=== PATIENT | male | born 2000 | race Caucasian/White ===

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

== ENCOUNTER 2021-02-08 12:28 | Emergency (ER) | payer OTHER, SELFPAY ==
[2021-02-08 12:58] VITALS: BP 136/91; PULSE 103; RESP 18; TEMP 37; O2SAT 99; BMI 20.7
--- NOTE | 2021-02-08 14:12 | HMH.EDUTC ---
[facility] [place] Impression: Laceration of left hand Qualifiers: Encounter type: initial encounter Foreign body presence: without foreign body Qualified Code(s): S61.412A - Laceration without foreign body of left hand, initial encounter Disposition: Home, Self-Care Condition on Discharge: Good Instructions: How to Care for a Laceration After Repair, DI for Laceration Repair -- Simple Additional Instructions: Keep the wound clean and dry. Keep a dressing on it if you are going to be getting it dirty. Watch the for signs of infection, such as redness, swelling, drainage, fever. etc. take tylenol or ibuprofen for pain. Follow up with your regular doctor for any issues. Return in 10 days to have the sutures removed. GO TO THE ER FOR ANY WORSENING SYMPTOMS OR CONCERNS. Prescriptions: cephALEXin [cephALEXin 500mg capsule] 500 mg PO Q6H 10 Days #40 cap Transmission Status: Received by [id number] Referrals: Jadon Warner MD [Primary Care Provider] - Forms: Work/School Release Time of Disposition: 14:14 Medical Decision Making - Medical Records Medical records reviewed: No: I reviewed the patient's medical records. - Gonzalo Inquiry Pt receiving controlled substance: No Vital Signs: 02/08/21 12:58 02/08/21 14:16 Temperature 98.6 F 98.6 F Temperature Source Oral Pulse Rate 103 H Pulse Rate [Left] 103 H Respiratory Rate 18 18 Blood Pressure 136/91 H Blood Pressure [Right Arm] 136/91 H Blood Pressure Mean [Right Arm] 106 Blood Pressure Source [Right Arm] Automatic Cuff Blood Pressure Position [Right Arm] Sitting 02 Sat by Pulse Oximetry 99 Orders (Tests/Meds): ED MEDICATIONS Discontinued Medications Generic Name Dose Route Start Last Admin Trade Name Freq PRN Reason Stop Dose Admin Lidocaine HCl 5 ml 02/08/21 15:16 02/08/21 15:17 Lidocaine 1% 5ml Pf Vial SQ 02/08/21 15:17 5 ml ONCE ONE Administration Neomycin/Polymyxin/Bacitracin 2 each 02/08/21 14:22 02/08/21 14:22 Neosporin Ointment 0.9gm Udp TP 02/08/21 14:23 2 each ONCE ONE [place] [facility] [place] - General Stated complaint: [id number] cut to left hand Time Seen by Provider: 02/08/21 13:05 Mode of Arrival: Ambulatory Source of Information: Patient Limitations: No Limitations Description of Symptoms (Recalled from Triage Doc. by RN): pt has a lac on his L palm on a green meat grader. approximated edges. 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 He states that his tetanus immunization is up to date. - Related Data Previous Rx's Medication Instructions Recorded cephALEXin [cephALEXin 500mg 500 mg PO Q6H 10 Days #40 cap 02/08/21 capsule] Allergies Allergy/AdvReac Type Severity Reaction Status Date / Time No Known Allergies Allergy Verified 02/08/21 13:04 - Worker's Comp Is this a Worker's Comp case?: No [facility] History - Hepatitis A Screen Drug use history?: No High risk sexual behaviors?: No History of sexually transmitted infection?: No Currently employed?: No Childcare worker?: No Do you have indoor plumbing?: Yes Do you have electricity?: Yes Attestation statement:: This patient has been screened for Hepatitis A risk factors. I have reviewed the patient's past medical history: Yes ROS Obtained: Yes All systems reviewed & no additional complaints - Musculoskeletal Musculoskeletal: Reports as per HPI - Integumentary/Breasts Skin/Breast: Reports as per HPI - Neurologic Neurologic: Denies tingling/numbness/burning sensations Physical Exam - General General appearance: alert, in no apparent distress - Head Head
[2021-02-08 14:16] VITALS: BP 136/91; PULSE 103; RESP 18; TEMP 37; O2SAT 99
== END 2021-02-08 14:18 | disposition home or self-care (01) ==
PROVIDERS: Emergency Provider Nurse Practitioner Family; PCP Internal Medicine Adolescent Medicine
DX: S61.412A Laceration without foreign body of left hand, initial encounter (principal); W29.0XXA Contact with powered kitchen appliance, initial encounter; Y92.69 Other specified industrial and construction area as the place of occurrence of the external cause; Y99.0 Civilian activity done for income or pay
CPT/HCPCS: 12001; 96372; 99202; G0463

== ENCOUNTER → 2021-03-01 07:54 | Outpatient (CLI) | payer BC, SELFPAY ==
[2021-03-04 07:32] LABS: QuantiFERON-TB Gold Plus Negative (Negative)
== END ==
PROVIDERS: Visit Provider Internal Medicine Adolescent Medicine
DX: Z11.1 Encounter for screening for respiratory tuberculosis (principal)
CPT/HCPCS: 36415; 86480

== ENCOUNTER → 2021-07-01 09:36 | Outpatient (CLI) | payer BC, SELFPAY ==
[2021-07-02 12:11] LABS: Varicella-Zoster Ab, IgM <0.91 index (0.00-0.90)
[2021-07-02 15:21] LABS: Varicella Zoster IgG 2472 index (Immune >165)
== END ==
PROVIDERS: Visit Provider Internal Medicine Adolescent Medicine
DX: Z00.00 Encounter for general adult medical examination without abnormal findings (principal)
CPT/HCPCS: 36415; 86787

== ENCOUNTER 2022-04-13 12:07 | Outpatient (CLI) | payer BC, SELFPAY ==
[2022-04-13 12:21] VITALS: BMI 22.9
== END 2022-04-13 12:39 | disposition home or self-care (01) ==
PROVIDERS: PCP Internal Medicine Adolescent Medicine; Visit Provider Internal Medicine Adolescent Medicine
DX: Z11.1 Encounter for screening for respiratory tuberculosis (principal)
CPT/HCPCS: 86580

== ENCOUNTER → 2022-05-04 11:19 | Outpatient (CLI) | payer BC, SELFPAY ==
[2022-05-07 10:14] LABS: QuantiFERON-TB Gold Plus Negative (Negative)
== END ==
PROVIDERS: PCP Internal Medicine Adolescent Medicine; Visit Provider Internal Medicine Adolescent Medicine
DX: Z11.1 Encounter for screening for respiratory tuberculosis (principal)
CPT/HCPCS: 36415; 86480